=== PATIENT | male | born 1945 | race Caucasian/White ===

== ENCOUNTER → 2023-07-06 11:06 | Outpatient (REF) | payer MEDICARE, OTHER, SELFPAY | LOC: HWRAD 11:06 | PROVIDERS: ATTENDING PHYSICIAN Student in an Organized Health Care Education/Training Program | DX: R05.3 Chronic cough (principal) | CPT/HCPCS: 71046 ==

== ENCOUNTER → 2023-10-11 18:25 | Outpatient (REF) | payer MEDICARE, OTHER, SELFPAY | LOC: MRI 3T 18:25 | PROVIDERS: ATTENDING PHYSICIAN Student in an Organized Health Care Education/Training Program | DX: R97.20 Elevated prostate specific antigen [PSA] (principal); Z80.42 Family history of malignant neoplasm of prostate | CPT/HCPCS: 72197; A9575 ==

== ENCOUNTER → 2023-10-31 18:13 | Outpatient (REF) | payer MEDICARE, OTHER, SELFPAY | LOC: CLAB 18:13 | PROVIDERS: ATTENDING PHYSICIAN Specialist | DX: R97.20 Elevated prostate specific antigen [PSA] (principal) | CPT/HCPCS: 88305 ==

== ENCOUNTER → 2023-11-19 10:38 | Outpatient (REF) | payer MEDICARE, OTHER, SELFPAY | LOC: HWRAD 10:38 | PROVIDERS: ATTENDING PHYSICIAN Student in an Organized Health Care Education/Training Program | DX: M25.532 Pain in left wrist (principal) | CPT/HCPCS: 73110 ==

== ENCOUNTER → 2024-08-29 13:07 | Outpatient (REF) | payer MEDICARE, OTHER, SELFPAY | LOC: SDSPAT 13:07 | PROVIDERS: ATTENDING PHYSICIAN Surgery; FAMILY PHYSICIAN Student in an Organized Health Care Education/Training Program | DX: K40.90 Unilateral inguinal hernia, without obstruction or gangrene, not specified as recurrent (principal) | CPT/HCPCS: 36415; 93005 ==

== ENCOUNTER 2024-09-22 06:13 | Day surgery (SDC) | payer MEDICARE, OTHER, SELFPAY ==
[2024-08-29 14:04] VITALS: BMI 24.2
--- NOTE | 2024-09-21 11:03 | HP.FOC2 ---
Focused History & Physical
Chief Complaint
HPI:
Chief Complaint: Left inguinal hernia
HPI / Indication for Planned Procedure: Patient is a 78-year-old male with a past abdominal surgical history of having undergone open right inguinal herniorrhaphy in 2017 from which she has recovered well.
The patient is taking note of swelling in the left inguinal region similar to his previous history of the right inguinal hernia. The left inguinal hernia has enlarged since noticing, swelling present upon standing with occasional discomfort and
more awareness of the hernia with exertional activities. Physical examination confirmed the presence of a readily reducible left inguinal hernia for which he presents for operative correction.
Reviewing prior MRI pelvis 10/12 there appeared to be a fat-containing left direct inguinal hernia
Relevant Past Medical History: Other (Prostate cancer being followed expectantly, BPH, GERD, seasonal allergies, glaucoma, history of detached retina, history of Pate's esophagus)
Relevant Social History: Negative
Relevant Family History: Negative
Relevant Past Surgical History: Positive for (Cataracts and multiple eye procedures, open right inguinal herniorrhaphy)
Review of Systems
Review of Pertinent Systems: All Systems Negative
Medication
See Medication form for detailed medications: Yes
Medication List (including Herbals & OTC):
acetaminophen 325 mg tablet (Tylenol) 650 mg PO Q4H PRN pain 09/15/24
atorvastatin 20 mg tablet 20 mg PO DAILY 09/15/24
erythromycin 5 mg/gram (0.5 %) eye ointment 1 applic ophthalmic (eye) HS 09/15/24
fluticasone propionate 50 mcg/actuation nasal spray,suspension 1 spray intranasal BID PRN nasal congestion 09/15/24
omeprazole 20 mg tablet,delayed release 20 mg PO DAILY 09/15/24
prednisolone acetate 1 % eye drops,suspension (Pred Forte) 1 drp ophthalmic (eye) BID 09/15/24
tamsulosin 0.4 mg capsule 0.8 mg PO HS 09/15/24
timolol 0.5 % eye drops 1 drp ophthalmic (eye) BID 09/15/24
timolol 0.5 % eye drops 1 drp ophthalmic (eye) DAILY 09/15/24
vit C 250 mg-vit E 90 mg-zinc 40 mg-copper 1 [id number] capsule (PreserVision AREDS-2) 1 tab PO DAILY 09/15/24
Medications Reviewed: Yes
Allergies and Reactions
Patient has Allergies: Yes
Noted Allergies and Reactions:
Allergy/AdvReac Type Severity Reaction Status Date / Time
brimonidine Allergy irritation Verified 09/15/24 11:20
and
redness of
eyes
NSAIDS (Non-Steroidal Allergy eye Verified 09/15/24 11:20
Anti-Inflamma hemorrhage
timolol (From Combigan) Allergy irritation Verified 09/15/24 11:20
and
redness of
eyes
pollen, grasses Allergy Unknown Uncoded 09/15/24 11:20
Pertinent Physical Exam
All Other Systems: Negative
Head/Neck: Normal
Lungs: Normal
Heart: Normal
Abdomen: Other (Reducible left inguinal hernia)
Extremities: Normal
Neurological: Normal
Diagnosis / Assessment
78-year-old male presenting for scheduled operative correction symptomatic left inguinal hernia
Plan / Procedure
Robotic assisted laparoscopic repair left inguinal hernia with mesh
Anesthesia/Sedation to be done by Anesthesia Provider: Yes
[2024-09-22] VITALS (8 sets, daily range): BP systolic 107–127; BP diastolic 63–79; BMI 24.2
[2024-09-22] MEDS: TYLENOL 1000 MG PO (08:19)
[2024-09-22] MEDS: NORMOSOL-R/PLASMALYTE-A 1000 IV (08:19)
--- NOTE | 2024-09-22 08:55 | W.SUR.PREOP ---
Pre-Operative Surgical Note
-
I have examined this patient prior to the performance of the scheduled procedure.
The patient's condition is unchanged from the time of the current History and
Physical and the patient is able to undergo the scheduled procedure.
--- NOTE | 2024-09-22 10:21 | W.IMMPOSTOP ---
Surgical Immed Post Op Note
-
Primary Surgeon: Juanito Mejia MD
Assisting Surgeon: Yamilka Kirkpatrick PA-C
Pre-op Diagnosis: Left inguinal hernia
Post-op Diagnosis: Left inguinal hernia; direct
Procedure Performed: Robotic assisted laparoscopic FRANCISCO J repair left inguinal hernia with mesh; 3D max large mid weight
Anesthesia Type: GETA +0.25% Marcaine with epinephrine
Specimen / Cultures: None
Estimated Blood Loss: 4 mL
Complications: None immediate
Operative Findings: Left direct inguinal hernia. Indirect location normal. Femoral space normal. No lipomatous component to spermatic cord/inguinal canal. 3D max large mid weight mesh repair secured to Don's ligament with 2-0 Vicryl stitch x
2. Reduction of pseudosac secured to Don's ligament with single interrupted 2-0 Vicryl stitch. Previous right inguinal herniorrhaphy appears intact. No additional incidental findings.
The assistance of Yamilka Kirkpatrick PA-C was required due to the complexity of the procedure. During the procedure Yamilka Kirkpatrick PA-C assisted with port placement, robotic instrumentation and suture material exchanges, and closure of the surgical incision
sites. I was present for the entirety of the operative procedure.
--- NOTE | 2024-09-22 10:24 | OR.RPT ---
Operative Report
Operative Report
Date of operative procedure: 09/22/2024
Primary Surgeon: Juanito Mejia MD
Assisting Surgeon: Yamilka Kirkpatrick PA-C
Pre-op Diagnosis: Left inguinal hernia
Post-op Diagnosis: Left inguinal hernia, direct
Procedure Performed: Robotic assisted laparoscopic FRANCISCO J repair left inguinal hernia with mesh; 3D max large mid weight
Anesthesia Type: GETA +0.25% Marcaine
Specimen / Cultures: None/none
Estimated Blood Loss: 4 mL
Complications: None immediate
Indications for operative procedure: Patient is a 78-year-old male with a past abdominal surgical history of having undergone open right inguinal herniorrhaphy in 2017 from which he has recovered well. The patient has taken note of swelling in the
left inguinal region similar to his previous history of the right inguinal hernia. The left inguinal hernia has enlarged since noticing, swelling present upon standing with occasional discomfort and more awareness of the hernia with exertional
activities. Physical examination confirmed the presence of a readily reducible left inguinal hernia for which he presents for operative correction. Reviewing prior MRI pelvis 10/12 there appeared to be a fat-containing left direct inguinal hernia
Brief summary of operative Findings: Left direct inguinal hernia. Left indirect and femoral location normal. No lipomatous component to spermatic cord/inguinal canal. 3D max large mid weight mesh repair secured to Don's ligament with 2-0
Vicryl stitch x 2. Reduction of pseudosac secured to Don's ligament with single interrupted 2-0 Vicryl stitch. Previous right inguinal herniorrhaphy appears intact. No additional incidental findings.
Operation detail: The patient was identified in the preoperative holding area. I confirmed the surgical site and side with the patient preoperatively which was then marked and initialed by myself. He was interviewed by the anesthesia and nursing
staff then brought back to the operating room. The patient was placed on the operating table in supine position. The bilateral upper extremities were carefully padded and tucked at the side utilizing the arm guard positioning system. Pneumatic
compression boots were on the bilateral lower extremities. Following induction of general endotracheal anesthesia the patient was administered Ancef 2 g IV for prophylactic antibiotic coverage. The patient's anterior abdominal wall was now widely
and sterilely prepped with ChloraPrep and then draped in the usual manner. The surgical timeout was completed and the procedure was confirmed.
I initially proceeded with Veress needle insufflation in the left subcostal midclavicular line location. Once insufflated to 10 mmHg pressure then a left midclavicular line 8 mm trocar was then placed. The robotic scope was inserted, there was no
evidence of iatrogenic injury from access. The Veress needle was withdrawn. An epigastric 8 mm trocar was placed just to the left off of the midline. A right midclavicular line 8 mm trocar was placed. The patient was then transition into
Trendelenburg to expose the inguinal/pelvic space and the robot was docked.
At the surgeon console inspection of the pelvis confirmed the presence of a left direct inguinal hernia. There were no additional incidental intra-abdominal findings.
I initially began with creation of a peritoneal flap at the level of the left ASIS to the left medial umbilical ligament. The preperitoneal plane was now established along the length of the flap and developed inferiorly down to the inguinal space.
The medial dissection proceeded until the notch of the pubic symphysis was exposed at the midline followed by Don's ligament on the left. Don's ligament was now cleared through the direct and femoral space. The herniated preperitoneal fat
and peritoneum are completely reduced from the direct hernia pseudosac. The underside of Don's ligament was exposed as well. The peritoneal flap was now mobilized laterally down to the internal ring. The peritoneal lining was then grasped and
carefully mobilized off of the left spermatic cord structures from an anterior lateral to anterior medial approach. I carefully continued to mobilize the peritoneum off of its posterior attachments with identification of the vas and the spermatic
cord vessels. The peritoneal dissection continued back proximally past the turn in the left vas deferens and then overlying the left iliac space to meet up with the medial dissection. The posterior dissection continued until there was wide
separation between the vas and the spermatic cord vessels. The dissection continued posterior and anterior laterally for full exposure of the myopectineal orifice. The indirect inguinal space was further evaluated and there was no identified
lipomatous protrusion of the inguinal canal nor spermatic cord structures.
With the myopectineal orifice now completely exposed hemostasis was confirmed. A 3D max large mid weight mesh was utilized for repair. First the pseudosac was grasped, partially reduced and secured to Don's ligament with a single interrupted 2-0
Vicryl stitch. The mesh was positioned parallel to the ileopubic tract. It was secured at 2 separate locations inferior medially on Don's ligament with 2 simple interrupted 2-0 Vicryl sutures. The patient was now begun to be taken out of
Trendelenburg to confirm that the posterior aspect of the mesh was lying flat and that there was no shelling or undermining of the mesh by the peritoneal edge. The insufflation pressure was reduced down to 6 mmHg pressure. The peritoneal flap was
now closed with a 2-0 Monocryl STRATAFIX spiral suture with a running [place] type stitch.
A flexible suction catheter was placed through an 8 mm trocar and introduced into the peritoneal flap to evacuate the air out of the preperitoneal space. This again confirmed good positioning of the inguinal hernia mesh. There was no shelling or
folding of the mesh and no undermining and mesh by the peritoneal edge. The peritoneal covering of the mesh was completely intact.
At this point the robot was undocked. All sponge instrument and needle counts were confirmed to be correct x 2. The CO2 insufflation was now carefully evacuated out of the abdominal cavity. The trocar sites were removed as well as the flexible
suction catheter. Skin was closed with 4-0 Monocryl. Sterile surgical glue dressings were applied. The patient tolerated the procedure well and was transferred to the recovery unit for routine postoperative monitoring.
The assistance of Yamilka Kirkpatrick PA-C was required due to complexity of surgery. During the procedure Yamilka Kirkpatrick PA-C assisted with port placement, robotic instrumentation and suture material exchanges as well as closure of the surgical sites. I
was present for the entirety of the operative procedure.
== END 2024-09-22 12:05 | disposition home or self-care (01) ==
LOC: SDS 06:13
PROVIDERS: ATTENDING PHYSICIAN Surgery; FAMILY PHYSICIAN Student in an Organized Health Care Education/Training Program
DX: K40.90 Unilateral inguinal hernia, without obstruction or gangrene, not specified as recurrent (principal); Z98.890 Other specified postprocedural states
CPT/HCPCS: 49650; C1781; J1610

== ENCOUNTER → 2024-11-28 11:51 | Outpatient (REF) | payer MEDICARE, OTHER, SELFPAY | LOC: HWRAD 11:51 | PROVIDERS: ATTENDING PHYSICIAN Student in an Organized Health Care Education/Training Program | DX: R05.2 Subacute cough (principal) | CPT/HCPCS: 71046 ==

== ENCOUNTER → 2025-02-10 11:07 | Outpatient (REF) | payer MEDICARE, OTHER, SELFPAY ==
[2025-02-10 12:18] LABS: Urine Character Clear (Clear)
[2025-02-10 12:22] LABS: Hematocrit 38.0 % (39.0-52.0); Hemoglobin 12.9 g/dL (13.0-18.0); Mean Corp Hgb Conc. 33.9 g/dL (33.0-37.0); Mean Corpuscular Volume 96.9 fL (80.0-94.0); Nucleated Red Blood Cells % 0 % (-); Platelet Count 247 10^3/uL (130-400); Red Cell Dist. Width 13.9 % (11.5-14.5)
[2025-02-10 13:55] LABS: ALT (SGPT) 36 U/L (0-50); AST (SGOT) 47 U/L (17-59); Albumin 3.5 g/dl (3.5-5.0); Alkaline Phosphatase 320 U/L (38-126); Blood Urea Nitrogen 14 mg/dl (9-20); Calcium 8.6 mg/dl (8.4-10.2); Carbon Dioxide 26 mmol/L (22-30); Chloride 102 mmol/L (98-107); Glucose 116 mg/dl (70-99); Lipase 212 U/L (23-300); Potassium 4.7 mmol/L (3.5-5.1); Sodium 135 mmol/L (135-145); Total Protein 6.8 g/dl (6.3-8.2); eGFR > 60.00
== END ==
LOC: REG 11:07
PROVIDERS: ATTENDING PHYSICIAN Student in an Organized Health Care Education/Training Program
DX: R10.84 Generalized abdominal pain (principal); R63.4 Abnormal weight loss; R19.4 Change in bowel habit; C61 Malignant neoplasm of prostate
CPT/HCPCS: 36415; 80053; 81003; 83690; 85025

== ENCOUNTER → 2025-02-16 14:03 | Outpatient (REF) | payer MEDICARE, OTHER, SELFPAY | LOC: RAD 14:03 | PROVIDERS: ATTENDING PHYSICIAN Student in an Organized Health Care Education/Training Program | DX: R10.84 Generalized abdominal pain (principal); R63.4 Abnormal weight loss; R19.4 Change in bowel habit; C61 Malignant neoplasm of prostate | CPT/HCPCS: 74177; Q9967 ==